=== PATIENT | male | born 1995 | race Caucasian/White ===

== ENCOUNTER 2017-04-23 13:23 | Emergency (ER) | payer SELFPAY ==
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
--- NOTE | 2017-04-23 14:43 | ED ORDER SUMMARY ---
..... Patient: ASHWIN SUN OrderSheet [facility] VisitID: [id number] [place] [place] [address] 22y, M Registration Date/Time: 04/23/2017 ORDER SHEET Weight: 77.1 kg (stated) Allergies: Seasonal GENERAL ORDERS: CT Head wo Cont Urgent (13:51 04/23/2017 HBivens A.R.N.P.) (Ack 13:52 LNations ER Tech1) (14:25 LNations ER Tech1) CT Sinus/Facial Bones wo Cont Urgent (13:51 04/23/2017 HBivens A.R.N.P.) (Ack 13:52 LNations ER Tech1) (14:25 LNations ER Tech1) Irrigate Wounds (13:51 04/23/2017 HBivens A.R.N.P.) (Ack 13:52 LNations ER Tech1) (14:40 JBest R.N.) Suture Set-up: (13:51 04/23/2017 HBivens A.R.N.P.) (Ack 13:52 LNations ER Tech1) (14:40 JBest R.N.) MEDICATION ORDERS: Tdap IM 0.5 mL (NOW, per protocol) (13:51 04/23/2017 HBivens A.R.N.P.) (13:57 JBest R.N.) IV FLUIDS: ORDER SHEET NOTES: [Electronically signed by Elvira Burgos A.R.N.P. (17:59 04/23/2017)] [Electronically signed by Christal Mcmahan R.N. (18:41 04/23/2017)] [Electronically locked/signed by Christal Mcmahan R.N. (18:41 04/23/2017)]
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
--- NOTE | 2017-04-23 14:43 | ED ORDER SUMMARY ---
..... Patient: ASHWIN SUN OrderSheet [facility] VisitID: [id number] [address] [place] [address] 22y, M Registration Date/Time: 04/23/2017 ORDER SHEET Weight: 77.1 kg (stated) Allergies: Seasonal GENERAL ORDERS: CT Head wo Cont Urgent (13:51 04/23/2017 HBivens A.R.N.P.) (Ack 13:52 LNations ER Tech1) (14:25 LNations ER Tech1) CT Sinus/Facial Bones wo Cont Urgent (13:51 04/23/2017 HBivens A.R.N.P.) (Ack 13:52 LNations ER Tech1) (14:25 LNations ER Tech1) Irrigate Wounds (13:51 04/23/2017 HBivens A.R.N.P.) (Ack 13:52 LNations ER Tech1) (14:40 JBest R.N.) Suture Set-up: (13:51 04/23/2017 HBivens A.R.N.P.) (Ack 13:52 LNations ER Tech1) (14:40 JBest R.N.) MEDICATION ORDERS: Tdap IM 0.5 mL (NOW, per protocol) (13:51 04/23/2017 HBivens A.R.N.P.) (13:57 JBest R.N.) IV FLUIDS: ORDER SHEET NOTES: [Electronically signed by Elvira Burgos A.R.N.P. (17:59 04/23/2017)] [Electronically signed by Christal Mcmahan R.N. (18:41 04/23/2017)] [Electronically locked/signed by Christal Mcmahan R.N. (18:41 04/23/2017)]
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
--- NOTE | 2017-04-23 18:42 | ED MED RECONCILIATION SUMMARY ---
Patient: ASHWIN SUN Medication Reconciliation Report [facility] VisitID: [id number] [address] [place] [address] 22y, M Registration Date/Time: 04/23/2017 Weight: 77.1 kg Height/Length: 70 in. BMI: 24.4 ALLERGIES: Seasonal The patient's Home Medications are listed below: NONE. The source(s) of the original Home Medication information: Not obtained. The following Medications were given to the patient in the Emergency Department: TDAP [IM] IM 0.5 mL, administered: 04/23/2017 1:57:00 PM The following Medications were prescribed to the patient: try to avoid talking Ultram tonight, as discussed. -- Elvira Burgos, Glynn.R.N.P. Ultram 50 mg tablets: take 1-2 orally every 6 hours as needed for pain. Dispense twenty (20). No refills. Substitution is permissible. -- Elvira Burgos A.R.N.P.
--- NOTE | 2017-04-23 18:42 | ED MED RECONCILIATION SUMMARY ---
Patient: ASHWIN SUN Medication Reconciliation Report [facility] VisitID: [id number] [address] [place] [address] 22y, M Registration Date/Time: 04/23/2017 Weight: 77.1 kg Height/Length: 70 in. BMI: 24.4 ALLERGIES: Seasonal The patient's Home Medications are listed below: NONE. The source(s) of the original Home Medication information: Not obtained. The following Medications were given to the patient in the Emergency Department: TDAP [IM] IM 0.5 mL, administered: 04/23/2017 1:57:00 PM The following Medications were prescribed to the patient: try to avoid talking Ultram tonight, as discussed. -- Elvira Burgos, Glynn.R.N.P. Ultram 50 mg tablets: take 1-2 orally every 6 hours as needed for pain. Dispense twenty (20). No refills. Substitution is permissible. -- Elvira Burgos A.R.N.P.
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
--- NOTE | 2017-04-23 18:42 | ED MAR SUMMARY ---
..... Medication Administration Record [facility] [address] [place] [address] Patient: ASHWIN SUN Visit ID: [id number] 22y, M Weight: 77.1 kg Height/Length: 70 in BMI: 24.4 ALLERGIES: Seasonal Given 13:57 04/23/2017 Christal Mcmahan R.N. Medication Administered: TDAP [IM], Dose: 0.5 mL IM. Medication Ordered: Tdap IM 0.5 mL (NOW, per protocol).
--- NOTE | 2017-04-23 18:42 | ED MAR SUMMARY ---
..... Medication Administration Record [facility] [address] [place] [address] Patient: ASHWIN SUN Visit ID: [id number] 22y, M Weight: 77.1 kg Height/Length: 70 in BMI: 24.4 ALLERGIES: Seasonal Given 13:57 04/23/2017 Christal Mcmahan R.N. Medication Administered: TDAP [IM], Dose: 0.5 mL IM. Medication Ordered: Tdap IM 0.5 mL (NOW, per protocol).
== END 2017-04-23 15:30 | disposition home or self-care (01) ==
LOC: ED SRH 13:23
DX: S01.312A Laceration without foreign body of left ear, initial encounter (principal); S01.91XA Laceration without foreign body of unspecified part of head, initial encounter; S29.011A Strain of muscle and tendon of front wall of thorax, initial encounter; S05.11XA Contusion of eyeball and orbital tissues, right eye, initial encounter; S80.811A Abrasion, right lower leg, initial encounter; Y04.8XXA Assault by other bodily force, initial encounter; Y92.89 Other specified places as the place of occurrence of the external cause